=== PATIENT | male | born 1945 | race Caucasian/White ===

== ENCOUNTER → 2018-07-11 | Outpatient (CLI) | payer MEDICARE ==
--- NOTE | 2018-07-11 16:02 | RADIOLOGY REPORT (SQ) ---
EXAM DESCRIPTION: U/S RETROPERITON (RENAL/AORTA) COMPLETED DATE/TIME: 07/11/2018 3:38 pm REASON FOR STUDY: Q61.3 POLYCYSTIC KIDNEY, UNSPECIFIED Q61.3 POLYCYSTIC KIDNEY, UNSPECIFIED COMPARISON: None. TECHNIQUE: Dynamic and static grayscale images acquired of the kidneys and bladder and recorded on P ACS. Additional selected color Doppler and spectral images recorded. LIMITATIONS: None. FINDINGS: RIGHT KIDNEY: Normal size. Multiple cortical cysts, the largest 11.5 cm. No solid or suspicious masses. No hydronephrosis. No calcifications. LEFT KIDNEY: Normal size. Multiple cortical cysts, the largest 4.9 cm. No solid or suspicious ma sses. No hydronephrosis. No calcifications. BLADDER: No masses. OTHER FINDINGS: No other significant finding. IMPRESSION: Polycystic kidney disease. No hydronephrosis. TECHNICAL DOCUMENTATION: JOB ID: [id number] [employer]- All Rights Reserved Reading location - IP/workstation name: [email or web address]
[2018-07-11 16:13] LABS: ABSOLUTE BASOPHILS # (AUTO) 0.1 10^3/uL (0.0-0.2); ABSOLUTE EOSINOPHILS # (AUTO) 0.3 10^3/uL (0.0-0.6); ABSOLUTE LYMPHOCYTES (AUTO) 2.3 10^3/uL (0.5-4.7); ABSOLUTE MONOCYTES (AUTO) 0.9 10^3/uL (0.1-1.4); ABSOLUTE NEUT (AUTO) 6.3 10^3/uL (1.7-8.2); BASOPHILS % (AUTO) 1.4 % (0-2); EOSINOPHILS % (AUTO) 3.3 % (0-6); HEMATOCRIT 40.5 % (37.9-51.0); HEMOGLOBIN 13.1 g/dL (13.5-17.0); LYMPHOCYTES % (AUTO) 23.2 % (13-45); MEAN CORPUSCULAR HEMOGLOBIN 27.2 pg (27.0-33.4); MEAN CORPUSCULAR HGB CONC 32.4 g/dL (32.0-36.0); MEAN CORPUSCULAR VOLUME 84 fl (80-97); MONOCYTES % (AUTO) 8.8 % (3-13); PLATELET COUNT 179 10^3/uL (150-450); RED BLOOD COUNT 4.83 10^6/uL (4.35-5.55); RED CELL DISTRIBUTION WIDTH 15.3 % (11.5-14.0); SEGMENTED NEUTROPHILS % (AUTO) 63.3 % (42-78); TOTAL CELLS COUNTED % (AUTO) 100 %; WHITE BLOOD COUNT 9.9 10^3/uL (4.0-10.5)
[2018-07-11 16:39] LABS: ALANINE AMINOTRANSFERASE 14 U/L (21-72); ALBUMIN 3.9 g/dL (3.5-5.0); ALKALINE PHOSPHATASE 87 U/L (38-126); ANION GAP 10 (5-19); ASPARTATE AMINO TRANSFERASE 16 U/L (17-59); BILIRUBIN,DIRECT 0.1 mg/dL (0.0-0.4); BILIRUBIN,TOTAL 0.4 mg/dL (0.2-1.3); BLOOD UREA NITROGEN 17 mg/dL (7-20); CALCIUM 9.2 mg/dL (8.4-10.2); CARBON DIOXIDE 29 mmol/L (22-30); CHLORIDE 103 mmol/L (98-107); CHOLESTEROL 150.52 mg/dL (0-200); GLUCOSE 97 mg/dL (75-110); POTASSIUM 4.7 mmol/L (3.6-5.0); SODIUM 142.3 mmol/L (137-145); TOTAL PROTEIN 7.1 g/dL (6.3-8.2); TRIGLYCERIDES 127 mg/dL (<150)
[2018-07-11 16:49] LABS: DIRECT LDL 100 mg/dL (<100)
== END ==
LOC: RAD 16:46
PROVIDERS: ATTEND Family Medicine Geriatric Medicine
DX: I10 Essential (primary) hypertension (principal); E78.5 Hyperlipidemia, unspecified; N40.0 Benign prostatic hyperplasia without lower urinary tract symptoms; Q61.3 Polycystic kidney, unspecified; Z79.899 Other long term (current) drug therapy
CPT/HCPCS: 36415; 76770; 80053; 80061; 84153; 84402; 84403; 84443; 85025

== ENCOUNTER → 2018-08-16 | Outpatient (CLI) | payer MEDICARE, OTHER ==
--- NOTE | 2018-08-16 09:36 | RADIOLOGY REPORT (SQ) ---
EXAM DESCRIPTION: MRA HEAD WITHOUT COMPLETED DATE/TIME: 08/16/2018 9:12 am REASON FOR STUDY: HX OF TIA AND CEREBRAL INFARCTION Z86.73 PRSNL HX OF TIA (TIA), AND CEREB INFRC W /O RESID DEFI Q61.3 POLYCYSTIC KIDNEY, UNSPECIFIED G45.3 AMAUROSIS FUGAX COMPARISON: None. TECHNIQUE: Axial 3-D [id number] acquisition imaging performed through the brain in the area of t he [place]. Images reformatted using 3-D MIPS. LIMITATIONS: None. FINDINGS: SOURCE IMAGES: No unexpected findings on source images. No large masses. 3-D MIP: No aneurysm. No occlusions. No significant stenosis. OTHER: No other significant finding. IMPRESSION: NORMAL MRA OF THE [place]. TECHNICAL DOCUMENTATION: JOB ID: [id number] [employer]- All Rights Reserved Reading location - IP/workstation name: [email or web address]
== END ==
LOC: RAD 08:22
PROVIDERS: ATTEND Family Medicine Geriatric Medicine
DX: G45.3 Amaurosis fugax (principal); Z86.73 Personal history of transient ischemic attack (TIA), and cerebral infarction without residual deficits; Q61.3 Polycystic kidney, unspecified
CPT/HCPCS: 70544

== ENCOUNTER 2020-08-27 09:47 | Day surgery (SDC) | payer MEDICARE, OTHER ==
[~2020-08-27 09:47] MED LIST: BUPIVACAINE HCL 0.75% INJ/PF (7.5 MG/1 ML) 10 ML SDV OD PRN; CHONDR SU A NA/HYALUR INTRAOC KIT (SURGICARE) ONE; EPINEPHRINE INJ/PF 1 MG/1 ML AMPULE ONE; KETOROLAC TROMETHAMINE 0.45% 4 DROP/0.4 ML DROPERETTE OD PRN; LIDOCAINE 1%/PHENYLEPHRINE 1.5% 1 ML VIAL ONE; LIDOCAINE 4% INJ/PF (40 MG/ML) 5 ML AMPUL OD PRN; TRYPAN BLUE 0.06 % OPH SOLN 0.5 ML DISP.SYRIN ONE
[2020-08-27] MEDS: TETRACAINE HCL 0.5% OPH SOLN 4 ML OD PRN ×3 (11:20→11:51)
[2020-08-27] MEDS: TROPICAMIDE 1% OPH SOLN 15 ML OD PRN ×3 (11:20→11:40)
[2020-08-27] MEDS: BESIFLOXACIN HCL 0.6% OPH SUSP 5 ML BOTTLE OD PRN ×4 (11:20→12:19)
[2020-08-27] MEDS: CYCLOPENTOLATE 0.2%/PHENYLEPHRINE 1% OPH SOLN 2 ML OD PRN ×3 (11:20→11:40)
[2020-08-27] MEDS ORDERED: MIDAZOLAM 2 MG/2 ML INJ ONE (11:30)
[2020-08-27] MEDS ORDERED: ONDANSETRON HCL INJ/PF 4 MG/2 ML SDV ONE (11:30)
[2020-08-27] MEDS ORDERED: FENTANYL CITRATE INJ/PF 100 MCG/2 ML AMPUL ONE (11:31)
[2020-08-27] MEDS: DORZOLAMIDE HCL 2%/TIMOLOL MALEAT 0.5% OPH SOLN 10 ML OD PRN ×2 (12:19)
[2020-08-27] MEDS: PREDNISOLONE ACETATE 1% OPH SUSP 5 ML OD PRN ×2 (12:19)
--- NOTE | 2020-08-27 14:11 | Operative Report ---
Operative Report-[facility] Operative Report: DATE OF SURGERY: 08/27/2020 PREOPERATIVE DIAGNOSIS: 1. CATARACT, RIGHT EYE 2. PUPIL MIOSIS, RIGHT EYE POSTOPERATIVE DIAGNOSIS: 1. CATARACT, RIGHT EYE 2. PUPIL MIOSIS, RIGHT EYE PROCEDURE PERFORMED: COMPLEX CATARACT EXTRACTION WITH INTRAOCULAR LENS, RIGHT EYE Intraocular Lens Model: DC morelos 21.5 Total Phaco Time: 15.91 CDE SURGEON: DESIRAE BARRERA MD ANESTHESIA: Topical with MAC plus intraocular phenylephrine and lidocaine INDICATIONS FOR SURGERY: Difficulty reading small print and road signs INDICATIONS FOR COMPLEX: Poor pupil dilation requiring the use of a Malyugin ring PROCEDURE: The patient was brought to the operating room placed on operating table. Topical anesthesia was administered. This consisted of instrument wipe pledgets soaked in a solution of 4% Xylocaine mixed with 0.75% Marcaine in a 1:2 ratio. A 2 x 1 cm pledget was placed in the superior fornix. A 1 x 1 cm pledget was placed in the inferior fornix. The eye was patched for 5 minutes. The patch and pledgets were removed. The eye was sterilely prepped and draped in the usual manner. A lid speculum was placed in the eye. A 4-0 black silk suture was placed around the superior and inferior rectus muscle to use as traction. A conjunctival peritomy was made at the 10 o'clock position. Hemostasis was obtained with bipolar cautery. A posterior limbal groove was created using a crescent knife and dissected anteriorly towards the cornea. Sharp point blade was used to create a paracentesis site at the 2 o'clock position. A 2.4 mm keratome was used into the anterior chamber through the groove. Then 0.5 mL of 1% non-preserved lidocaine with phenylephrine was injected into the anterior chamber. Viscoelastic was injected into the anterior chamber. Pupil dilation was approximately 4.5 mm. A Malyugin Ring was placed stabilizing the iris. An anterior capsulotomy was performed using Utrata forceps in a capsulorrhexis fashion. Hydrodissection and hydrodelineation was performed. Phacoemulsification was performed in the divide and conquer technique. Following this, that I/A unit was used to remove residual cortex. Viscoelastic was injected into the capsular bag. Intraocular lens were placed in the capsular bag. The Malyugin ring haptics were removed and the ring was removed from the eye. The I/A unit was used to remove residual viscoelastic. The wound was seen to be watertight under high and low pressure and no sutures were placed. The 4-0 black silk sutures and lid speculum were removed. The eye was shielded after Besivance and Cosopt drops were placed. The patient tolerated the procedure well and was sent to recovery room in good condition.
== END 2020-08-27 13:03 | disposition home or self-care (01) ==
LOC: SC 09:47
PROVIDERS: ATTEND Ophthalmology
DX: H25.89 Other age-related cataract (principal); H25.12 Age-related nuclear cataract, left eye; H40.013 Open angle with borderline findings, low risk, bilateral; H57.03 Miosis; M35.3 Polymyalgia rheumatica; Z87.891 Personal history of nicotine dependence; I10 Essential (primary) hypertension; Z86.73 Personal history of transient ischemic attack (TIA), and cerebral infarction without residual deficits; M19.90 Unspecified osteoarthritis, unspecified site; R73.03 Prediabetes; M79.7 Fibromyalgia; G47.33 Obstructive sleep apnea (adult) (pediatric)
CPT/HCPCS: 66982; V2632; J2250; J3490 ×4; A9270; J0171; J3010; J2405; 142

== ENCOUNTER 2020-09-17 09:49 | Day surgery (SDC) | payer MEDICARE, OTHER ==
[~2020-09-17 09:49] MED LIST changes: -BUPIVACAINE HCL 0.75% INJ/PF (7.5 MG/1 ML) 10 ML SDV OD PRN; +BUPIVACAINE HCL 0.75% INJ/PF (7.5 MG/1 ML) 10 ML SDV OS PRN; -CHONDR SU A NA/HYALUR INTRAOC KIT (SURGICARE) ONE; -EPINEPHRINE INJ/PF 1 MG/1 ML AMPULE ONE; -KETOROLAC TROMETHAMINE 0.45% 4 DROP/0.4 ML DROPERETTE OD PRN; +KETOROLAC TROMETHAMINE 0.45% 4 DROP/0.4 ML DROPERETTE OS PRN; -LIDOCAINE 4% INJ/PF (40 MG/ML) 5 ML AMPUL OD PRN; +LIDOCAINE 4% INJ/PF (40 MG/ML) 5 ML AMPUL OS PRN; -TRYPAN BLUE 0.06 % OPH SOLN 0.5 ML DISP.SYRIN ONE
[2020-09-17] MEDS: TETRACAINE HCL 0.5% OPH SOLN 4 ML OS PRN ×3 (10:31→11:06)
[2020-09-17] MEDS: CYCLOPENTOLATE 0.2%/PHENYLEPHRINE 1% OPH SOLN 2 ML OS PRN ×3 (10:31→10:42)
[2020-09-17] MEDS: TROPICAMIDE 1% OPH SOLN 15 ML OS PRN ×3 (10:31→10:42)
[2020-09-17] MEDS: BESIFLOXACIN HCL 0.6% OPH SUSP 5 ML BOTTLE OS PRN ×4 (10:32→11:39)
[2020-09-17] MEDS ORDERED: MIDAZOLAM 2 MG/2 ML INJ ONE (10:43)
[2020-09-17] MEDS: LIDOCAINE 1% INJ-PF (10 MG/ML) 30 ML SDV ONE ×2 (11:22)
[2020-09-17] MEDS: CHONDR SU A NA/HYALUR INTRAOC KIT (SURGICARE) ONE ×2 (11:22)
[2020-09-17] MEDS: EPINEPHRINE INJ/PF 1 MG/1 ML AMPULE ONE ×2 (11:22)
[2020-09-17] MEDS: DORZOLAMIDE HCL 2%/TIMOLOL MALEAT 0.5% OPH SOLN 10 ML OS PRN ×2 (11:39)
[2020-09-17] MEDS: PREDNISOLONE ACETATE 1% OPH SUSP 5 ML OS PRN ×2 (11:39)
--- NOTE | 2020-09-17 12:02 | Operative Report ---
Operative Report-[facility] Operative Report: DATE OF SURGERY: 09/17/2020 PREOPERATIVE DIAGNOSIS: 1. CATARACT, LEFT EYE. 2. PUPIL MIOSIS, LEFT EYE POSTOPERATIVE DIAGNOSIS: 1. CATARACT, LEFT EYE. 2. PUPIL MIOSIS, LEFT EYE PROCEDURE PERFORMED: COMPLEX CATARACT EXTRACTION WITH INTRAOCULAR LENSES, LEFT EYE Intraocular Lens Model: DC morelos 22.0 Total Phaco Time: 7.91 CDE SURGEON: DESIRAE BARRERA MD ANESTHESIA: Topical with MAC plus intraocular phenylephrine and lidocaine INDICATIONS FOR SURGERY: Difficulty reading road signs and words on TV PROCEDURE: The patient was brought to the operating room placed on operating table. Topical anesthesia was administered. This consisted of instrument wipe pledgets soaked in a solution of 4% Xylocaine mixed with 0.75% Marcaine in a 1:2 ratio. A 2 x 1 cm pledget was placed in the superior fornix. A 1 x 1 cm pledget was placed in the inferior fornix. The eye was patched for 5 minutes. The patch and pledgets were removed. The eye was sterilely prepped and draped in the usual manner. A lid speculum was placed in the eye. A 4-0 black silk suture was placed around the superior and inferior rectus muscle to use as traction. A conjunctival peritomy was made at the 10 o'clock position. Hemostasis was obtained with bipolar cautery. A posterior limbal groove was created using a crescent knife and dissected anteriorly towards the cornea. Sharp point blade was used to create a paracentesis site at the 2 o'clock position. A 2.4 mm keratome was used into the anterior chamber through the groove. Then 0.5 mL of 1% non-preserved lidocaine with phenylephrine was injected into the anterior chamber. Viscoelastic was injected into the anterior chamber. Pupil dilation was approximately 3 mm. A Malyugin Ring was placed stabilizing the iris. An anterior capsulotomy was performed using Utrata forceps in a capsulorrhexis fashion. Hydrodissection and hydrodelineation was performed. Phacoemulsification was performed in the divide and conquer technique. Following this, that I/A unit was used to remove residual cortex. Viscoelastic was injected into the capsular bag. Intraocular lens were placed in the capsular bag. The Malyugin ring haptics were removed and the ring was removed from the eye. The I/A unit was used to remove residual viscoelastic. The wound was seen to be watertight under high and low pressure and no sutures were placed. The 4-0 black silk sutures and lid speculum were removed. The eye was shielded after Besivance and Cosopt drops were placed. The patient tolerated the procedure well and was sent to recovery room in good condition.
== END 2020-09-17 12:11 | disposition home or self-care (01) ==
LOC: SC 09:49
PROVIDERS: ATTEND Ophthalmology
DX: H25.12 Age-related nuclear cataract, left eye (principal); H57.03 Miosis; Z96.1 Presence of intraocular lens; Z87.891 Personal history of nicotine dependence; I10 Essential (primary) hypertension; Z86.73 Personal history of transient ischemic attack (TIA), and cerebral infarction without residual deficits; R73.03 Prediabetes; G47.33 Obstructive sleep apnea (adult) (pediatric); M79.7 Fibromyalgia; M35.3 Polymyalgia rheumatica; E66.9 Obesity, unspecified
CPT/HCPCS: 66982; V2632; J2250; J3490 ×4; A9270; J0171